=== PATIENT | female | born 1960 | race Two or more races ===

== ENCOUNTER 2022-04-21 12:08 | Emergency (ER) | payer OTHER ==
[~2022-04-21] VITALS: Ht 154.9 cm; Wt 53.1 kg
[2022-04-21] MEDS ORDERED: FARXIGA10 MG PO (13:19)
[2022-04-21] MEDS ORDERED: ENALAPRIL MALEA10 MG PO (13:19)
[2022-04-21] MEDS ORDERED: AMOX-CLAV 500-1 EACH PO (13:19)
[2022-04-21] MEDS ORDERED: TOUJEO SOL300 UNIT/1 SQ (13:20)
[2022-04-21] MEDS ORDERED: METFORMIN HCL1000 M3 PO (13:20)
[2022-04-21] MEDS ORDERED: CLOTRIMAZOLE-BE15 G1 TP (13:21)
== END 2022-04-21 17:09 ==
LOC: ER 12:08
DX: L72.3 Sebaceous cyst (principal); Z88.6 Allergy status to analgesic agent; E11.9 Type 2 diabetes mellitus without complications; Z79.4 Long term (current) use of insulin

== ENCOUNTER 2022-10-29 11:43 | Outpatient (CLI) | payer OTHER ==
[~2022-10-29 11:43] MED LIST: AMOX-CLAV 500-1 EACH PO; CLOTRIMAZOLE-BE15 G1 TP; ENALAPRIL MALEA10 MG PO; FARXIGA10 MG PO; METFORMIN HCL1000 M3 PO; TOUJEO SOL300 UNIT/1 SQ
== END 2022-10-29 11:52 | disposition home or self-care (01) ==
LOC: TOM 11:43
PROVIDERS: ATTEND General Practice
DX: J98.6 Disorders of diaphragm (principal); R05.3 Chronic cough; Z12.2 Encounter for screening for malignant neoplasm of respiratory organs

== ENCOUNTER 2025-01-01 09:15 | Outpatient (CLI) | payer OTHER | END 2025-01-01 09:30 | disposition home or self-care (01) | LOC: SONOGRAMA 09:15 | PROVIDERS: ATTEND General Practice | DX: R19.7 Diarrhea, unspecified (principal); R10.9 Unspecified abdominal pain; R68.83 Chills (without fever) ==